=== PATIENT | female | born 2000 | race Caucasian/White ===

== ENCOUNTER 2025-05-20 06:38 | Outpatient (REF) | payer OTHER, SELFPAY ==
--- NOTE | ~2025-05-20 | US_ITS ---
EXAMINATION: US PELVIS TRANSABDOMINAL AND TRANSVAGINAL HISTORY: MENORRHAGIA COMPARISON: There are no prior studies available for comparison. TECHNIQUE: Transabdominal and endovaginal real-time 2D talavera-scale ultrasound was performed. FINDINGS: Uterus: The uterus is normal in size, measuring 8.0 x 3.9 x 5.0 cm. Myometrium has a normal echotexture. No fibroids are identified. Endometrium: The endometrial stripe is thickened measuring 16 mm in thickness and is heterogeneous in appearance. Right ovary: The right ovary measures 3.4 x 2.0 x 2.1 cm. The right ovary is normal in size and echotexture. Left ovary: The left ovary measures 3.0 x 1.8 x 1.9 cm. The left ovary is normal in size and echotexture. Pelvic fluid: There is a small amount of free fluid in the cul-de-sac.. US/US pelvic and transvaginal IMPRESSION: Thickened, heterogeneous appearing endometrial stripe. Electronically signed by: Juan J Copeland MD 05/20/2025 11:02 AM EDT
== END 2025-05-20 06:39 | disposition home or self-care (01) ==
LOC: HO.UMASIMG 06:38
PROVIDERS: Visit Provider Family Medicine
DX: N92.0 Excessive and frequent menstruation with regular cycle (principal)
CPT/HCPCS: 76830; 76856

== ENCOUNTER → 2025-05-20 09:04 | Outpatient (BNV) | payer OTHER, SELFPAY | PROVIDERS: Visit Provider Radiology Diagnostic Radiology | DX: N93.9 Abnormal uterine and vaginal bleeding, unspecified (principal) | CPT/HCPCS: 76830; 76856 ==